=== PATIENT | female | born 1955 | race Caucasian/White ===

== ENCOUNTER 2024-03-05 06:18 | Day surgery (SDC) | payer OTHER, SELFPAY ==
[2024-03-05] VITALS (10 sets, daily range): BP systolic 103–116; BP diastolic 61–77; BMI 24.4
[2024-03-05] MEDS: Pyridium 200 MG PO (10:37)
[2024-03-05] MEDS: HEPARIN 5000 UNITS SC (10:37)
[2024-03-05] MEDS: NORMOSOL-R/PLASMALYTE-A 1000 IV (10:38)
[2024-03-05] MEDS: TYLENOL 650 MG PO (17:02)
== END 2024-03-05 17:30 | disposition home or self-care (01) ==
LOC: SDS 06:18
PROVIDERS: ATTENDING PHYSICIAN Obstetrics & Gynecology
PROC: 8E0W4CZ Robotic Assisted Procedure of Trunk Region, Percutaneous Endoscopic Approach (ICD-10-PCS; 2024-03-05)
PROC: 0USG4ZZ Reposition Vagina, Percutaneous Endoscopic Approach (ICD-10-PCS; 2024-03-05)
PROC: 0TSD0ZZ Reposition Urethra, Open Approach (ICD-10-PCS; 2024-03-05)
DX: N81.10 Cystocele, unspecified (principal); N39.3 Stress incontinence (female) (male)
CPT/HCPCS: 57425; 57288; 86850; 86900; 86901; C1763; C1771